=== PATIENT | female | born 1950 | race Native Hawaiian/Other Pacific Islander ===

== ENCOUNTER 2017-04-14 15:29 | Emergency (ER) | payer OTHER ==
[2017-04-14 15:29] VITALS: BMI 23.8
[2017-04-14 15:42] VITALS: TEMP 99; O2SAT 100
--- NOTE | 2017-04-14 16:15 | C.PDOC ---
History Of Present Illness Pt had a verbal altercation which triggered anxiety attack. 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) Current Symptoms Are (Timing): Gone Initiating Event: Emotionaly Upset Current Respiratory Medications: None Severity: Moderate Associated Symptoms: Anxiety Additional History Per: Prior Records Past Medical History Reviewed: Historical Data, Nursing Documentation, Vital Signs Vital Signs: Last Vital Signs Temp 99 F 04/14/17 15:34 Pulse 115 H 04/14/17 15:34 Resp 18 04/14/17 15:34 BP 199/108 H 04/14/17 15:34 Pulse Ox 100 04/14/17 15:34 - Medical History PMH: Arthritis, Hypercholesterolemia Surgical History: - [facility] Procedures D & C NEC (12/21/14) Family History: States: Unknown Family Hx - Social History Hx Tobacco Use: No Hx Alcohol Use: No Hx Substance Use: No - Immunization History Hx Tetanus Toxoid Vaccination: No Hx Influenza Vaccination: No Hx Pneumococcal Vaccination: No Review Of Systems Except As Marked, All Systems Reviewed And Found Negative. Constitutional: Negative for: Fever Respiratory: Positive for: Shortness of Breath (resolved) Gastrointestinal: Negative for: Vomiting, Abdominal Pain Musculoskeletal: Negative for: Neck Pain, Back Pain, Leg Pain Skin: Negative for: Rash Neurological: Negative for: Weakness, Numbness, Seizures Psych: Negative for: Suicidal ideation Physical Exam - Physical Exam Appears: Non-toxic, No Acute Distress Skin: Normal Color, Warm, Dry, No Rash Head: Atraumatic, Normacephalic Eye(s): bilateral: Normal Inspection, PERRL, EOMI Neck: Normal ROM, Supple Cardiovascular: Rhythm Regular Respiratory: Normal Breath Sounds, No Accessory Muscle Use Gastrointestinal/Abdominal: Soft, No Tenderness Back: No CVA Tenderness Extremity: Normal ROM, No Pedal Edema, No Calf Tenderness Neurological/Psych: Oriented x3, Normal Speech, Normal Cognition, Normal Motor, Normal Sensation ED Course And Treatment ECG: Interpreted By Me, Viewed By Me ECG Rhythm: Sinus Rhythm ECG Interpretation: No Acute Changes Rate From EC O2 Sat by Pulse Oximetry: 100 Pulse Ox Interpretation: Normal Progress Note: Pt is now asymptomatic after calming down. BP much improved. Reassessment Condition: Improved Disposition Counseled Patient/Family Regarding: Diagnosis, Need For Followup - Disposition Referrals: Charan Toney MD [Staff Provider] - Disposition Time: 16:17 Condition: IMPROVED Additional Instructions: Follow up with your doctor for further evaluation and treatment. Return to the ER if you develop worsening of symptoms or if you have any other concerns. Instructions: Panic Attack (ED) - Clinical Impression Clinical Impression: Anxiety as acute reaction to exceptional stress
[2017-04-14 16:16] VITALS: BP 149/80; PULSE 83; RESP 16
--- NOTE | 2017-04-19 10:15 | CARD ---
APPROVED REPORT EKG Measurement Heart [id number] <Conclusion> Normal sinus rhythm Normal ECG
== END 2017-04-14 16:24 | disposition home or self-care (01) ==
LOC: C.ER 15:29
DX: F43.0 Acute stress reaction (principal)

== ENCOUNTER 2018-02-08 06:57 | Emergency (ER) | payer OTHER ==
[2018-02-08 06:57] VITALS: BMI 23.8
--- NOTE | 2018-02-08 07:36 | C.PDOC ---
History Of Present Illness 67 y/o female presents to ED for complaints of dizziness associated with vomiting and diaphoresis that began this morning. Denies chest pain, SOB, Hx of medical problems, and allergies. Patient states she feels like "everything is moving." Patient also states she had similar symptoms last year. Time Seen by Provider: 02/08/18 07:23 Chief Complaint (Nursing): Dizziness/Lightheaded History Per: Patient History/Exam Limitations: no limitations Onset/Duration Of Symptoms: Hrs, Sudden Onset Current Symptoms Are (Timing): Still Present Possible Causative Factor(s): Vertigo Fall Associated With With Symptoms: No Recent travel outside of the [place]: No - Symptoms Of CVA Associated Symptoms: denies: Impaired Speech, Seizure Activity, Decreased Ability To Walk Recent Aspirin Use: Unknown Current Coumadin Use?: Unknown Recent Head Trauma: No Past Medical History Reviewed: Historical Data, Nursing Documentation, Vital Signs Vital Signs: Last Vital Signs Temp 98.1 F 02/08/18 16:30 Pulse 80 02/08/18 16:30 Resp 20 02/08/18 16:30 BP 128/78 02/08/18 16:30 Pulse Ox 97 02/08/18 16:30 - Medical History PMH: Arthritis, HTN, Hypercholesterolemia Surgical History: - [facility] Procedures D & C NEC (12/21/14) Family History: States: Unknown Family Hx - Social History Hx Tobacco Use: No Hx Alcohol Use: No Hx Substance Use: No - Immunization History Hx Tetanus Toxoid Vaccination: No Hx Influenza Vaccination: No Hx Pneumococcal Vaccination: No Review Of Systems Constitutional: Positive for: Sweats. Negative for: Fever, Chills Gastrointestinal: Positive for: Vomiting. Negative for: Abdominal Pain, Diarrhea, Constipation Skin: Negative for: Rash Neurological: Positive for: Dizziness. Negative for: Weakness, Numbness, Altered Mental Status Physical Exam - Physical Exam Appears: Non-toxic, No Acute Distress Skin: Warm, Dry Head: Atraumatic, Normacephalic Eye(s): bilateral: Normal Inspection, PERRL, EOMI, Other (horizontal nystagmus) Ear(s): Bilateral: Normal Oral Mucosa: Moist Throat: No Erythema, No Exudate Neck: Normal ROM, No Midline Cervical Tenderness, No Paracervical Tenderness, Supple Chest: Symmetrical, No Tenderness Cardiovascular: Rhythm Regular Respiratory: Normal Breath Sounds, No Decreased Breath Sounds, No Rales, No Rhonchi, No Wheezing Gastrointestinal/Abdominal: Soft, No Tenderness Extremity: Normal ROM, No Swelling Neurological/Psych: Oriented x3, Normal Speech, Normal Cognition, Normal Cranial Nerves, Normal Motor, Normal Sensation Gait: Steady ED Course And Treatment - Laboratory Results Result Diagrams: 02/08/18 08:02 02/08/18 08:02 O2 Sat by Pulse Oximetry: 99 (RA) Pulse Ox Interpretation: Normal - Other Rad CXR X-Ray: Viewed By Me, Read By Radiologist Interpretation: Chest x-ray single frontal view. History: Dizzy. Lightheaded. Comparison: None available. Findings: Mild venous congestion. Bibasilar breast and nipple shadows. Right hilar prominence. Upper lobe granulomatous changes. Tortuous aorta. Heart size within normal limits. Degenerative changes in the spine. Impression: Mild venous congestion. Bibasilar breast and nipple shadows. Right hilar prominence. Upper lobe granulomatous changes. Tortuous aorta. Heart size within normal limits. Degenerative changes in the spine. - CT Scan/US CT Head Other Rad Studies (CT/US): Read By Radiologist, Radiology Report Reviewed CT/US Interpretation: PROCEDURE: CT HEAD WITHOUT CONTRAST. HISTORY: dizzy, vomiting. COMPARISON: None available. TECHNIQUE: Axial computed tomography images were obtained through the head/brain without intravenous contrast. Radiation dose: Total exam DLP = 950 mGy-cm. This CT exam was performed using one or more of the following dose reduction techniques: Automated exposure control, adjustment of the mA and/or kV according to patient size, and/or use of iterative reconstruction technique. FINDINGS: HEMORRHAGE: No intracranial hemorrhage. BRAIN: No mass effect or edema. Scattered focal lucencies in the subcortical and periventricular white matter suggestive for chronic microvascular ischemic change. Focal confluent area of low attenuation seen within the posterior right frontal subcortical white matter which may represent age-indeterminate ischemic change. If there is concern for acute ischemic change, consider further evaluation with MRI. Bilateral basal ganglia calcifications. VENTRICLES: Unremarkable. No hydrocephalus. CALVARIUM: Unremarkable. PARANASAL SINUSES: Unremarkable as visualized. No significant inflammatory changes. MASTOID AIR CELLS: Unremarkable as visualized. No inflammatory changes. OTHER FINDINGS: Intracranial arterial calcifications. IMPRESSION: Chronic microvascular ischemic change. Focal confluent area of low attenuation seen within the posterior right frontal subcortical white matter which may represent age-indeterminate ischemic change. This is best seen on series 4 images 36 through 39. If there is concern for acute ischemic change , consider further evaluation with MRI. MRI HEAD Other Rad Studies (CT/US): Read By Radiologist, Radiology Report Reviewed CT/US Interpretation: [facility]. [facility]. Preliminary Radiology Report Call: [phone]. assistance Online chat: [email or web address]. Name: HANNAH CASTANEDA Age: 67Years F Date: 02/08/2018. Requesting Physician: Leanne Comer PA-C : 1950. [place] Procedure Ordered As Accession Number of. Images. MRA/MRV HEAD. WO. MRI MRA HEAD WITHOUT. CONTRAST. [id number]. J. 251. Provided Clinical History: dizzy, vomiting, abnormal head CT. Chronic microvascular ischemic change. EXAM : MR Angiography Head Without Intravenous Contrast. CLINICAL HISTORY: 67 years old, female; Abnormal findings; Abnormal CT of the head; Additional info: Dizzy, vomiting,. abnormal head CT. Chronic microvascular ischemic change. TECHNIQUE: Magnetic resonance angiography images of the head without intravenous contrast. 3D reconstructed images were created and reviewed. COMPARISON: CT - HEAD W/O CONTRAST 2018-02-08 08:56. FINDINGS: Right internal carotid artery: No acute findings. Intracranial segment is patent with no significant. stenosis. No aneurysm. Right anterior cerebral artery: Unremarkable. No occlusion or significant stenosis. No aneurysm. Right middle cerebral artery: Unremarkable. No occlusion or significant stenosis. No aneurysm. Right posterior cerebral artery: Unremarkable. No occlusion or significant stenosis. No aneurysm. Right vertebral artery: Unremarkable as visualized. Left internal carotid artery: No acute findings. Intracranial segment is patent with no significant. stenosis. No aneurysm. Left anterior cerebral artery: Unremarkable. No occlusion or significant stenosis. No aneurysm. Left middle cerebral artery: Unremarkable. No occlusion or significant stenosis. No aneurysm. Left posterior cerebral artery: Unremarkable. No occlusion or significant stenosis. No aneurysm. Left vertebral artery: Unremarkable as visualized. Basilar artery: Unremarkable. No occlusion or significant stenosis. No aneurysm. IMPRESSION: No stenosis. No occlusion. No aneurysm. HANNAH CASTANEDA | Preliminary Radiology Report. CONFIDENTIALITY STATEMENT. This report is intended only for the use of the referring physician, and only in accordance with law, If you received this in error, call [phone]. Page 2 of 2. Thank you for allowing us to participate in the care of your patient. Dictated and Authenticated by: Simeon Pang MD. 02/08/2018 1:01 PM Eastern Time ([place] & [place]) MRI BRAIN Other Rad Studies (CT/US): Read By Radiologist, Radiology Report Reviewed CT/US Interpretation: [facility]. [facility]. Preliminary Radiology Report Call: [phone]. assistance Online chat: [email or web address]. Name: HANNAH CASTANEDA Age: 67Years F Date: 02/08/2018. Requesting Physician: Leanne Comer PA-C : 1950. [employer] Procedure Ordered As Accession Number of Images. MR BRAIN WO MRI BRAIN WITHOUT CONTRAST [id number]. Provided Clinical History: dizzy, vomiting, abnormal head CT. Chronic microvascular ischemic change. EXAM: MR Head Without Intravenous Contrast. CLINICAL HISTORY: 67 years old, female; Abnormal findings; Abnormal radiologic findings of head/skull; Ischemia;. Additional info: Dizzy, vomiting, abnormal head CT. Chronic microvascular ischemic change. TECHNIQUE: Magnetic resonance images of the head/brain without intravenous contrast in multiple planes. COMPARISON: MRA HEAD WITHOUT CONTRAST 2018-02-08 12:09. FINDINGS: Brain: There is mild patchy increased T2 signal intensity within the periventricular white matter,. consistent with chronic microvascular ischemic changes. There are multiple small focal areas of. chronic ischemia in bilateral frontal, parietal and periatrial white matter. The cortical gamez / white. matter interfaces are preserved throughout the brain. Intracranial flow voids are well maintained. There is no abnormal diffusion weighted signal intensity to suggest an acute ischemic event. On. gradient echo imaging, no susceptibility changes are seen to represent parenchymal calcification or. degraded blood products. Ventricles: The ventricular system is not dilated and is appropriate for the patient's age. Bones/joints: Unremarkable. Sinuses: Unremarkable as visualized. No acute sinusitis. Mastoid air cells: Unremarkable as visualized. No mastoid effusion. Orbits: Unremarkable as visualized. IMPRESSION: No acute infarction, masses or hemorrhage is seen. No acute intracranial abnormality is identified. Diffuse age-related cerebral atrophy and mild chronic microvascular white matter ischemic changes,. without evidence of an acute intracranial abnormality. HANNAH CASTANEDA | Preliminary Radiology Report. CONFIDENTIALITY STATEMENT. This report is intended only for the use of the referring physician, and only in accordance with law, If you received this in error, call [phone]. Page 2 of 2. Thank you for allowing us to participate in the care of your patient. Dictated and Authenticated by: Simeon Pang MD. 02/08/2018 12:58 PM Eastern Time ( [place] & [place]) Progress Note: Ordered EKG, CT Head, blood work, CXR, and urinalysis. Administered Antivert and IV fluids. On re-evaluation patient feels much better , asymptomatic now, ambulatory, tolerates po. Copies of CT, labs and MRI/MRA reports were given to the patient. She was instructed to f/u with PMD and neurologist. Disposition - Disposition Referrals: Jae Roa MD [Staff Provider] - Disposition: HOME/ ROUTINE Disposition Time: 16:03 Condition: IMPROVED Additional Instructions: Follow up with PMD and Neurologist within 1-2 days. Return to ED if feel worse. Prescriptions: Meclizine [Meclizine*] 25 mg PO Q6 #30 tab Ondansetron ODT [Zofran ODT] 4 mg PO .Q4-6H PRN #20 odt PRN Reason: Nausea/Vomiting Instructions: Vertigo (a Type of Dizziness) Forms: [employer] (Icelandic), Work Excuse - Clinical Impression Clinical Impression: Vertigo - PA / CITY ASSESSOR / Resident Statement MD/DO has reviewed & agrees with the documentation as recorded. - Scribe Statement The provider has reviewed the documentation as recorded by the Janete Veronica Miller
[2018-02-08] MEDS ORDERED: Sodium Chloride 0.9% 1,000 ML IV STA (07:45)
[2018-02-08 08:05] LABS: BASO % 0.7 % (0.0-2.0); EOS # 0.1 K/uL (0.0-0.7); EOS % 1.2 % (0.0-4.0); HEMOGLOBIN 12.8 g/dL (11.0-16.0); LYMPH # 1.4 K/uL (1.0-4.3); MEAN CORPUSCULAR HEMOGLOBIN 31.2 pg (27.0-31.0); MEAN CORPUSCULAR HGB CONC 34.6 g/dL (33.0-37.0); MEAN PLATELET VOLUME 8.6 fL (7.2-11.7); MONO # 0.3 K/uL (0.0-0.8); MONO % 4.7 % (0.0-10.0); NEUT # 5.3 K/uL (1.8-7.0); NEUT % 73.4 % (50.0-75.0); RBC 4.11 Mil/uL (3.80-5.20); RED CELL DISTRIBUTION WIDTH 12.9 % (11.5-14.5); WHITE BLOOD COUNT 7.2 K/uL (4.8-10.8)
[2018-02-08] MEDS ORDERED: Sodium Chloride 0.9% 1,000 ML ONE (08:05)
[2018-02-08 08:17] LABS: INR 1.4; PROTHROMBIN TIME 15.1 SECONDS (9.7-12.2)
[2018-02-08 08:21] LABS: ALB/GLOB RATIO 1.3 (1.0-2.1); ALBUMIN 4.1 g/dL (3.5-5.0); ALT/SGPT 24 U/L (9-52); AST/SGOT 24 U/L (14-36); BLOOD UREA NITROGEN 16 mg/dL (7-17); CALCIUM 10.1 mg/dl (8.6-10.4); GFR AFRICAN-AMERICAN > 60; GFR NON-AFRICAN AMERICAN > 60; LIPASE 232 U/L (23-300)
--- NOTE | 2018-02-08 08:25 | RAD ---
Chest x-ray single frontal view History: Dizzy. Lightheaded. Comparison: None available. Findings: Mild venous congestion. Bibasilar breast and nipple shadows. Right hilar prominence. Upper lobe granulomatous changes. Tortuous aorta. Heart size within normal limits. Degenerative changes in the spine. Impression: Mild venous congestion. Bibasilar breast and nipple shadows. Right hilar prominence. Upper lobe granulomatous changes. Tortuous aorta. Heart size within normal limits. Degenerative changes in the spine.
[2018-02-08 08:30] LABS: CK-MB 0.22 ng/mL (0.0-3.38)
[2018-02-08 08:32] LABS: URINE BILIRUBIN NEGATIVE (NEGATIVE); URINE BLOOD NEGATIVE (NEGATIVE); URINE CLARITY Hazy (Clear); URINE COLOR Yellow (YELLOW); URINE GLUCOSE (UA) NORMAL (Normal); URINE LEUKOCYTE ESTERASE NEG Leu/uL (Negative); URINE PROTEIN 1+ mg/dL (NEGATIVE); URINE UROBILINOGEN NORMAL mg/dL (0.2-1.0)
--- NOTE | 2018-02-08 09:49 | CT ---
PROCEDURE: CT HEAD WITHOUT CONTRAST. HISTORY: dizzy, vomiting COMPARISON: None available. TECHNIQUE: Axial computed tomography images were obtained through the head/brain without intravenous contrast. Radiation dose: Total exam DLP = 950 mGy-cm. This CT exam was performed using one or more of the following dose reduction techniques: Automated exposure control, adjustment of the mA and/or kV according to patient size, and/or use of iterative reconstruction technique. FINDINGS: HEMORRHAGE: No intracranial hemorrhage. BRAIN: No mass effect or edema. Scattered focal lucencies in the subcortical and periventricular white matter suggestive for chronic microvascular ischemic change. Focal confluent area of low attenuation seen within the posterior right frontal subcortical white matter which may represent age-indeterminate ischemic change. If there is concern for acute ischemic change, consider further evaluation with MRI. Bilateral basal ganglia calcifications. VENTRICLES: Unremarkable. No hydrocephalus. CALVARIUM: Unremarkable. PARANASAL SINUSES: Unremarkable as visualized. No significant inflammatory changes. MASTOID AIR CELLS: Unremarkable as visualized. No inflammatory changes. OTHER FINDINGS: Intracranial arterial calcifications. IMPRESSION: Chronic microvascular ischemic change. Focal confluent area of low attenuation seen within the posterior right frontal subcortical white matter which may represent age-indeterminate ischemic change. This is best seen on series 4 images 36 through 39. If there is concern for acute ischemic change, consider further evaluation with MRI.
[2018-02-08 16:31] VITALS: BP 128/78; PULSE 80; RESP 20; TEMP 98.1
[2018-02-08 18:27] VITALS: O2SAT 99
--- NOTE | 2018-02-09 09:36 | MRI ---
PROCEDURE: MRI BRAIN WITHOUT CONTRAST HISTORY: dizzy, vomiting, abnormal head CT COMPARISON: Comparison is made to the previous CT dated 02/08/2018 TECHNIQUE: Multiplanar, multisequence MR images of the brain were obtained without intravenous contrast enhancement. FINDINGS: HEMORRHAGE: None DWI: No evidence of an acute or early subacute infarction. BRAIN PARENCHYMA: No mass effect or edema. Mild volume loss is noted. Scattered small foci of hyperintense T2 and FLAIR signal noted in the white matter likely represent chronic microvascular ischemic disease. VENTRICLES: Unremarkable. No hydrocephalus. CRANIUM: Unremarkable. ORBITS: Grossly unremarkable. PARANASAL SINUSES/MASTOIDS: Clear VASCULAR SYSTEM: Skull base flow voids intact. OTHER FINDINGS: Incidentally noted is empty sella. IMPRESSION: No evidence of acute infarction. No evidence of intracranial hemorrhage mass effect or midline shift. Mild volume loss and mild chronic microvascular ischemic disease.
--- NOTE | 2018-02-09 12:44 | MRI ---
PROCEDURE: Magnetic Resonance Angiography Brain HISTORY: dizzy, vomiting, abnormal head CT COMPARISON: None available. TECHNIQUE: 3D time of flight MR angiography of the intracranial arteries was performed. Rotating maximum intensity projection images were generated. FINDINGS: INTERNAL CAROTID ARTERIES: Unremarkable. The skull base, petrous, cavernous and supraclinoid segments are bilaterally widely patient. ANTERIOR CEREBRAL ARTERIES: Unremarkable. A1 and A2 segments are widely patent. Smaller distal branches unremarkable, as visualized. MIDDLE CEREBRAL ARTERIES: Unremarkable. M1 and M2 segments are widely patent. Perisylvian branches grossly symmetric. POSTERIOR CIRCULATION: Basilar Artery: Unremarkable. Distal Vertebral Arteries: Unremarkable. Posterior Cerebral Arteries: There is a origin of the right posterior cerebral artery. Posterior Inferior Cerebellar Arteries: Unremarkable. ANEURYSM/ VASCULAR MALFORMATIONS: None. OTHER FINDINGS: None. IMPRESSION: No evidence of focal stenosis or occlusion in the intracranial arteries. No evidence of aneurysm or vascular anomaly.
== END 2018-02-08 16:30 | disposition home or self-care (01) ==
LOC: C.ER 06:57
DX: R42 Dizziness and giddiness (principal)

== ENCOUNTER 2018-11-26 09:33 | Outpatient (CLI) | payer OTHER | END 2018-11-26 09:34 | disposition home or self-care (01) | LOC: C.LAB 09:33 | DX: E78.00 Pure hypercholesterolemia, unspecified (principal); E79.0 Hyperuricemia without signs of inflammatory arthritis and tophaceous disease; E55.9 Vitamin D deficiency, unspecified; R53.83 Other fatigue; R73.01 Impaired fasting glucose ==